=== PATIENT | female | born 1935 | race Caucasian/White ===

== ENCOUNTER 2022-02-28 19:06 | Outpatient (CLI) | payer MEDICARE, MEDICAID, SELFPAY | END 2022-02-28 19:07 | disposition home or self-care (01) | LOC: AMB 03-07 11:06 | PROVIDERS: PCP Family Medicine; Visit Provider Emergency Medicine Emergency Medical Services | DX: S01.112A Laceration without foreign body of left eyelid and periocular area, initial encounter (principal); W01.0XXA Fall on same level from slipping, tripping and stumbling without subsequent striking against object, initial encounter; Y92.009 Unspecified place in unspecified non-institutional (private) residence as the place of occurrence of the external cause | CPT/HCPCS: A0425; A0427 ==

== ENCOUNTER 2022-02-28 19:37 | Emergency (ER) | payer MEDICARE, MEDICAID, SELFPAY ==
[2022-02-28] VITALS (8 sets, daily range): BP systolic 135–143; BP diastolic 52–67; PULSE 58–87; RESP 16; TEMP 37.3; O2SAT 92–94; BMI 23.5
--- NOTE | 2022-02-28 19:40 | ED_ITS ---
HPI - General Adult General Chief complaint: Head Injury/Pain Stated complaint: Fall on Thinners Time Seen by Provider: 02/28/22 19:39 History of Present Illness HPI narrative: This 87-year-old female comes in by ambulance because of a fall that occurred just prior to arrival. She tripped over her walker at home and hit the left side of her head. She did not have loss of consciousness. She does not have any neurologic deficit. She does not report a headache but has some tenderness on the left side of her forehead above the left eyebrow where there is a laceration.. She is on anticoagulants. She did not have any other injury. She does report some chronic neck and back pain but states that there was no injury to her neck and there are no worsening symptoms involving her spine. Related Data Home Medications Medication Instructions Recorded Confirmed albuterol sulfate continuous nebulization PRN 02/28/22 albuterol sulfate 90 mcg/actuation inhalation 02/28/22 aerosol inhaler duloxetine 20 mg capsule,delayed mg PO 02/28/22 release furosemide 40 mg tablet mg 02/28/22 lovastatin 20 mg tablet mg 02/28/22 mometasone 220 mcg/actuation(60 inhalation 02/28/22 doses) breath activated powder inhaler (Asmanex Twisthaler) nitroglycerin sublingual PRN 02/28/22 nystatin 100,000 unit/gram topical topical 02/28/22 powder (Nyamyc) potassium chloride 20 mEq meq PO 02/28/22 tablet,extended release(part/cryst) (Klor-Con M) pramipexole 0.25 mg tablet 0.5 mg PO QHS 02/28/22 02/28/22 (Mirapex) tizanidine 2 mg tablet mg 02/28/22 tramadol 50 mg tablet mg 02/28/22 warfarin 1 mg tablet mg 02/28/22 Allergies Allergy/AdvReac Type Severity Reaction Status Date / Time morphine Allergy nausea and Verified 02/28/22 20:02 vomiting naproxen [From Naprosyn] Allergy itching, Verified 02/28/22 20:02 edema Sulfa (Sulfonamide Allergy unknown Verified 02/28/22 20:02 Antibiotics) aspirin AdvReac stomach Verified 02/28/22 20:02 upset codeine AdvReac gi upset Verified 02/28/22 20:02 hydromorphone [From Dilaudid] AdvReac Vomiting Verified 02/28/22 20:02 iv contrast dye Allergy anaphylaxis Uncoded 02/28/22 20:02 cortisone AdvReac weight gain Uncoded 02/28/22 20:02 percocet AdvReac Nausea Uncoded 02/28/22 20:02 Review of Systems Status of ROS: Reports: 10 or more systems reviewed and unremarkable except as noted in History and below Narrative: Constitutional: No fevers, no weight gain or loss. Eyes: No discharge. No vision changes. HENT: No congestion, no sore throat, no ear pain. Cardiovascular: No chest pain, no palpitations. Respiratory: No shortness of breath, no wheezes, no cough. Gastrointestinal: No abdominal pain, no vomiting, no diarrhea. Genitourinary: No dysuria, no hematuria. Musculoskeletal: Chronic degenerative disease. Skin: No rashes, no pruritis. Neurological: No dizziness, weakness, sensory change, speech change. Endo/Heme/Allergies: No bruising or bleeding. No polydipsia. Pysch: no suicidality, no anxiety, no insomnia. All other systems reviewed and are negative. Exam Narrative: Exam Narrative: Constitutional: Well-developed, well-nourished, no acute distress. HEENT: Bruising around her left eye. 2 cm linear laceration in the forehead just above the left eyebrow. Neck: Normal range of motion. Nontender. Supple. Heart: Regular. No murmurs. Normal rate. Intact distal pulses. Lungs: Clear to auscultation. No chest discomfort. No wheezes, rhonchi, or rales. Abdomen: Normal bowel sounds. Nontender. No rebound tenderness. Genitalia: Deferred. Back: No midline tenderness. Normal range of motion. Extremities: Normal range of motion. No injury. Skin: Intact. No rash. Warm. No erythema or pallor. Neurologic: No altered sensation. No weakness. Alert and oriented. Psychiatric: No suicidality. No anxiety or depression. No insomnia. Nursing notes and vitals signs are reviewed. Const: Vital Signs, click to edit/add: Vital Signs - 24 hr 02/28/22 19:48 Temperature 99.1 F Pulse Rate [Right Pulse Oximeter] 79 Respiratory Rate 16 Blood Pressure [Le ft Upper Arm] 143/67 H Pulse Oximetry 92 Oxygen Delivery Me thod Room Air Course Vital Signs Vital signs: Initial Vital Signs Temperature 99.1 F 02/28/22 19:48 Temperature Source Temporal Artery Scan 02/28/22 19:48 Pulse Rate 79 02/28/22 19:48 Respiratory Rate 16 02/28/22 19:48 Blood Pressure 143/67 H 02/28/22 19:48 Blood Pressure Mean 92 02/28/22 19:48 Blood Pressure Position Supine 02/28/22 19:48 Pulse Oximetry 92 02/28/22 19:48 Oxygen Delivery Method 02/28/22 19:48 Vital Signs Temperature 99.1 F 02/28/22 19:48 Pulse Rate 79 02/28/22 19:48 Respiratory Rate 16 02/28/22 19:48 Blood Pressure 143/67 H 02/28/22 19:48 Pulse Oximetry 92 02/28/22 19:48 Oxygen Delivery Method 02/28/22 19:48 Temperature 99.1 F 02/28/22 19:48 Pulse Rate 79 02/28/22 19:48 Respiratory Rate 16 02/28/22 19:48 Blood Pressure 143/67 H 02/28/22 19:48 Pulse Oximetry 92 02/28/22 19:48 Oxygen Delivery Method 02/28/22 19:48 Medical Decision Making MDM Narrative Medical decision making narrative: This patient comes in for evaluation of an injury that occurred just prior to arrival. She fell at home and hit her head. She has a 2 cm laceration on her left forehead. The patient is on blood thinners. She does not report any headache or neurologic deficits. She did go to CT scan immediately upon arrival and CT results by my review show no sign of intracranial findings. Radiology report is pending. The patient has a laceration on the forehead that was cleansed with normal saline. Anesthesia was acquired using 1% lidocaine with epinephrine. Total of 5 sutures were placed in interrupted fashion using 5.0 Ethilon suture. Instructions were given regarding wound care and the need to return for suture removal in 5-[address] scan - head: My impression: No acute intracranial abnormalities. No sign of fracture or hemorrhage. Discharge Plan Discharge Clinical Impression: Forehead laceration Patient Disposition: Home, Self-Care Condition: Improved Additional Instructions: Keep wound clean and dry. Follow up with clinic or urgent care in 5-7 days for suture removal. Return if worsening. Follow Up/Referrals: Shirley Cunningham DO [Primary Care Provider] - Stand Alone Forms: [employer] Info Instructions
--- NOTE | 2022-02-28 19:40 | CRLHL7_ITS ---
For Patients: As a result of the Century Cures Act, medical imaging exams and procedure reports are released immediately into your electronic medical record. You may view this report before your referring provider. If you have questions, please contact your health care provider. INDICATION: Fall. On anticoagulants. TECHNIQUE: CT of the head without contrast. Coronal and sagittal reformats are included. COMPARISON: Head CT from 04/05/2017. FINDINGS: No acute intracranial hemorrhage. No mass effect or midline shift. No hydrocephalus or extra-axial collections. Patchy white matter hypoattenuation, typical for chronic microvascular ischemic change. No acute osseous abnormalities. Mastoid air cells and paranasal sinuses are clear. Normal soft tissues. IMPRESSION: IMPRESSION: 1. No acute intracranial abnormalities. Please note that all CT scans at this facility use dose modulation, iterative reconstruction, and/or weight-based dosing when appropriate to reduce radiation dose to as low as reasonably achievable. Dictated by Cristian Pérez MD @ 02/28/2022 8:11:31 PM (Electronically Signed)
--- NOTE | 2022-02-28 20:13 | ED.NURSE ---
Pt's daughter Harmony called. Provided update to Harmony with pt permission.
== END 2022-02-28 20:58 | disposition home or self-care (01) ==
PROVIDERS: Emergency Provider Emergency Medicine Emergency Medical Services; PCP Family Medicine
DX: S01.112A Laceration without foreign body of left eyelid and periocular area, initial encounter (principal); W01.0XXA Fall on same level from slipping, tripping and stumbling without subsequent striking against object, initial encounter
CPT/HCPCS: 12011; 70450; 99283; 99284

== ENCOUNTER 2022-07-08 14:17 | Outpatient (REF) | payer MEDICARE, MEDICAID, SELFPAY ==
[2022-07-08 16:09] LABS: INR 3.53 (0.91-1.10)
== END 2022-07-08 14:18 | disposition home or self-care (01) ==
LOC: NPINS 14:17
PROVIDERS: PCP Family Medicine; Visit Provider Family Medicine
DX: I48.91 Unspecified atrial fibrillation (principal)
CPT/HCPCS: 85610

== ENCOUNTER 2022-09-28 14:25 | Outpatient (CLI) | payer MEDICARE, MEDICAID, SELFPAY | END 2022-09-28 14:26 | disposition home or self-care (01) | LOC: AMB 10-02 10:27 | PROVIDERS: PCP Family Medicine; Visit Provider Family Medicine | DX: R41.82 Altered mental status, unspecified (principal) | CPT/HCPCS: A0425; A0428; A0429 ==

== ENCOUNTER 2022-09-28 14:54 | Emergency (ER) | payer MEDICARE, MEDICAID, SELFPAY ==
[2022-09-28] VITALS (16 sets, daily range): BP systolic 110–169; BP diastolic 65–77; PULSE 61–79; RESP 18; TEMP 36.9; O2SAT 64–100
--- NOTE | 2022-09-28 15:12 | CRLHL7_ITS ---
For Patients: As a result of the Century Cures Act, medical imaging exams and procedure reports are released immediately into your electronic medical record. You may view this report before your referring provider. If you have questions, please contact your health care provider. Indication: Possible stroke Technique: Volumetric multidetector CT images of the head were obtained without the administration of low osmolar intravenous contrast. Comparison: CT head February 28, 2022 Findings: There is no intra-axial or extra-axial fluid collection. There is no mass effect or midline shift. There is age-related cortical atrophy with mild sulcal widening and ex vacuo dilatation of the lateral ventricles. There is encephalomalacia of the right frontal lobe similar to previous exam. There are moderate confluent chronic small vessel disease changes in the subcortical and periventricular white matter without lost mark-white differentiation. The orbits and their contents are grossly within normal limits. The bony calvarium is grossly intact. The paranasal sinuses are clear. The mastoid air cells are well aerated. Impression: Stable age related and remote ischemic changes of the brain from comparison without acute intracranial abnormality. A report was sent to Dr. Thomas at 3:43 p.m. September 28, 2022 Please note that all CT scans at this facility use dose modulation, iterative reconstruction, and/or weight-based dosing when appropriate to reduce radiation dose to as low as reasonably achievable. Dictated by Shahid Barr MD @ 09/28/2022 3:44:08 PM (Electronically Signed)
--- NOTE | 2022-09-28 15:13 | CRLHL7_ITS ---
For Patients: As a result of the Cures Act, medical imaging exams and procedure reports are released immediately into your electronic medical record. You may view this report before your referring provider. If you have questions, please contact your health care provider. Indication: Neck pain, unknown fall Technique: Volumetric multidetector CT images of the cervical spine were obtained without the administration of IV contrast. Comparison: None available. Findings: The cervical vertebral body heights are maintained with minimal endplate subchondral cystic changes. There is straightening of the normal cervical lordosis with anterolisthesis of C4 on C5 and C5 on C6. There is no displaced fracture or dislocation. There is moderate to severe degenerative disc disease with disc height loss and marginal osteophyte formation. There is moderate to severe facet arthrosis. There is mild to moderate pleural thickening of the right lung apex with interstitial prominence. Impression: Moderate to severe degenerative changes of the cervical spine without evidence of displaced fracture. Please note that all CT scans at this facility use dose modulation, iterative reconstruction, and/or weight-based dosing when appropriate to reduce radiation dose to as low as reasonably achievable. Dictated by Shahid Barr MD @ 09/28/2022 4:07:18 PM (Electronically Signed)
--- NOTE | 2022-09-28 15:23 | ED_ITS ---
HPI - General Adult General Chief complaint: Altered Mental Status Stated complaint: Possible stroke Time Seen by Provider: 09/28/22 15:07 History of Present Illness HPI narrative: Patient arrived 1455 and went directly for CT scan. Dr. Thomas met patient in hallway. Patient was on the phone with a friend at 1410 and friend noticed slurred speech and not making sense so called 911. Patient lives alone, unknown last known well. Fire responded, noticed left?sided deficit. EMS found coumadin, potassium med bottles at patient's home. EMS glucose 106. Patient has skin tear to left forearm 87-year-old woman presenting to the emergency department via EMS red stroke code. I meet them in the back coto and attend to CT imaging. Piecing together later in trying to verify last known well, spoke to friend Ketty who notes that Karin called her at 2:10 p.m.. She was however slurring her words such that Ketty could understand. Karin is mostly edentulous at and arrives here without her dentures. Family and friends say that she is very hard to understand without them but Ketty says this was worse. EMS has arrived frequently to Karin's home to assist her up from the floor/falls. She is anticoagulated with Coumadin with a history of atrial fibrillation and pacemaker implantation. Initially she seems to think that she is in her own home but over time it appears that she is relatively cognitively clear. She when asked says she hurts everywhere. Does struggle with chronic pain from osteoarthritis. She denies recent fall. EMS reports that was found sitting in her recliner with her albuterol inhaler in hand. Karin seems to be denying shortness of breath or chest pain or head pain. She has unable to cooperate with some requests as delineated exam below. I clarify with Karin later that she had placed a roast in the oven around or 04 24. Subsequently made a strawberry pie then was doing dishes. I am not sure what happened after that. Estimate then is what she reports as a last known well of around 1230 or 1:00 p.m. Related Data Home Medications Medication Instructions Recorded Confirmed albuterol sulfate continuous nebulization PRN 02/28/22 albuterol sulfate 90 mcg/actuation inhalation 02/28/22 aerosol inhaler duloxetine 20 mg capsule,delayed mg PO 02/28/22 release furosemide 40 mg tablet mg 02/28/22 lovastatin 20 mg tablet mg 02/28/22 mometasone 220 mcg/actuation(60 inhalation 02/28/22 doses) breath activated powder inhaler (Asmanex Twisthaler) nitroglycerin sublingual PRN 02/28/22 nystatin 100,000 unit/gram topical topical 02/28/22 powder (Nyamyc) potassium chloride 20 mEq meq PO 02/28/22 tablet,extended release(part/cryst) (Klor-Con M) pramipexole 0.25 mg tablet 0.5 mg PO QHS 02/28/22 02/28/22 (Mirapex) tizanidine 2 mg tablet mg 02/28/22 tramadol 50 mg tablet mg 02/28/22 warfarin 1 mg tablet mg 02/28/22 Allergies Allergy/AdvReac Type Severity Reaction Status Date / Time morphine Allergy nausea and Verified 02/28/22 20:02 vomiting naproxen [From Naprosyn] Allergy itching, Verified 02/28/22 20:02 edema Sulfa (Sulfonamide Allergy unknown Verified 02/28/22 20:02 Antibiotics) aspirin AdvReac stomach Verified 02/28/22 20:02 upset codeine AdvReac gi upset Verified 02/28/22 20:02 hydromorphone [From Dilaudid] AdvReac Vomiting Verified 02/28/22 20:02 iv contrast dye Allergy anaphylaxis Uncoded 02/28/22 20:02 cortisone AdvReac weight gain Uncoded 02/28/22 20:02 percocet AdvReac Nausea Uncoded 02/28/22 20:02 Review of Systems Status of ROS: Reports: unobtainable due to mental status (Difficult to accomplish being hard of hearing and edentulous) PFSH PFS Social History Smoking Status: Unknown if ever smoked Do you use any of these nicotine containing products: None Second hand tobacco smoke exposure: No How often do you have a drink containing alcohol: never How often do you have six or more drinks on one occasion: Never AUDIT-C Alcohol total score: 0 Non-prescribed substance use: denies use Exam Narrative: Exam Narrative: On arrival she is alert. Generally little hard of hearing. Slurring words though not inconsistent with edentulous state. Oropharynx is dry. Prefers right eye deviation. Pupils appeared to show evidence of lens reimplantation. They are 3 mm and briskly reactive. Head is turned preferentially to the right. She is breathing easily supporting her own airway. Lungs appear to be clear. There is a loud holosystolic murmur with accentuated S2 across the precordium. Abdomen is soft and nontender. Lower extremities with 1.5+ pitting edema below the knees. On the evidence of trauma appears to be a recent abrasion and very small skin tear at the left mid forearm. Repeatedly has no movement of left arm and left leg. She does indicate that she can feel touch there. Somewhat weak grasp in the right hand but I think at baseline. Good strength in the right lower extremity as well. Const: Vital Signs, click to edit/add: Vital Signs - 24 hr 09/28/22 15:08 09/28/22 15:44 09/28/22 15:45 Temperature 98.4 F Pulse Rate 65 71 Pulse Rate [Pulse Oximeter] 79 Respiratory Rate 18 Blood Pressure Pulse Oximetry 91 83 L 09/28/22 15:47 09/28/22 15:53 09/28/22 16:00 Temperature Pulse Rate 65 Pulse Rate [Pulse Oximeter] Respiratory Rate Blood Pressure 164/67 H 158/76 H Pulse Oximetry 100 09/28/22 16:02 09/28/22 16:15 09/28/22 16:30 Temperature Pulse Rate 62 65 64 Pulse Rate [Pulse Oximeter] Respiratory Rate Blood Pressure 120/72 Pulse Oximetry 97 96 100 09/28/22 16:33 09/28/22 16:45 09/28/22 17:00 Temperature Pulse Rate 72 63 61 Pulse Rate [Pulse Oximeter] Respiratory Rate Blood Pressure 156/75 H Pulse Oximetry 100 98 100 Course Vital Signs Vital signs: Initial Vital Signs Temperature 98.4 F 09/28/22 15:08 Temperature Source Temporal Artery Scan 09/28/22 15:08 Pulse Rate 79 09/28/22 15:08 Respiratory Rate 18 09/28/22 15:08 Vital Signs Temperature 98.4 F 09/28/22 15:08 Pulse Rate 79 05/06/23 15:08 Respiratory Rate 18 09/28/22 15:08 Temperature 98.4 F 09/28/22 15:08 Pulse Rate 61 09/28/22 17:00 Respiratory Rate 18 09/28/22 15:08 Blood Pressure 156/75 H 09/28/22 16:33 Pulse Oximetry 100 09/28/22 17:00 Medical Decision Making MDM Narrative Medical decision making narrative: Initially little unclear whether not has fallen. I think scanning neck/C-spine is important. Will also look for potential head bleed I can not find evidence of trauma here. I would suspect ischemic stroke maybe MCA right side. Reviewing records does show DNR DNI status. Initially operating with unclear last known well time. Scanned head and C-spine. Numerous attempts at IV where they kept blowing and subsequently realized a reported anaphylaxis reaction to IV contrast dye. Anticipating placement yet of IV will be pretreating when available with Solu-Medrol and diphenhydramine. Given density of symptoms would consider thrombolytics regardless if can verify last known well and family preference for cares. I reviewed CT head noting no acute bleed. Radiology over-read confirms as well as no cervical fracture apparent. Extensive degenerative changes. With over-read confirmed a call to Stroke Neuro speak with Dr. Zabala. Still attempting to obtain line and verify family preference for cares. Karin is fiercely independent and would want any possibility of improvement according to my conversation with family. We discussed potential risk of lytics in this case. Pending improvement may yet do IV contrasted scan at [place]. Initiating pre treatment for IV contrast media. Finally get hemoglobin and INR back. She is within goal. Confirmed with Dr. Zabala given suspected last known well is still within window for lytics. Anesthesia has arrived and are thankfully able to place 2 lines. Lytics are initiated and transport anticipated direct to ED. This was challenging to verify last known well, confirm family wishes, line placement. Lab Data Lab results reviewed: Yes I reviewed the patient's lab results Labs: Lab Results 09/28/22 09/28/22 09/28/22 Range/Units 15:40 16:09 16:21 WBC 6.27 (4.50-11.00) K/uL RBC 3.82 L (4.00-5.20) m/uL Hgb 10.8 L (12.0-16.0) gm/dL Hct 35.8 (33.0-51.0) % MCV 94 (80-100) fL MCH 28 (26-34) pg MCHC 30 L (32-36) gm/dL RDW Coeff of Carli 15.1 (11.5-15.5) % Plt Count 230 (140-440) K/uL Neut % (Auto) 72.6 H (42.0-72.0) % Lymph % (Auto) 13.2 L (20-44) % [place] % (Auto) 11.2 H (0.0-11.0) % Eos % (Auto) 1.6 (0.0-7.0) % Baso % (Auto) 0.3 (0.0-3.0) % Neut # (Auto) 4.60 (1.7-7.0) K/uL Lymph # (Auto) 0.80 L (0.90-2.90) K/uL [place] # (Auto) 0.70 (0.00-0.90) K/UL Eos # (Auto) 0.10 (0.00-0.50) K/uL Baso # (Auto) 0.02 (0.00-0.30) K/uL INR 1.52 H (0.91-1.10) APTT 35 H (23-33) Seconds D-Dimer Quant (PE/DVT) Cancelled Sodium 138 (135-149) mmol/L Potassium 3.1 L (3.6-5.1) mmol/L Chloride 104 (96-114) mmol/L Carbon Dioxide 28 (20-32) mmol/L BUN 14 (7-30) mg/dL Creatinine 1.0 (0.5-1.5) mg/dL Estimated Creat Clear Estimated GFR 55 ml/min Glucose 88 (60-115) mg/dL Calcium 8.9 (8.4-10.6) mg/dL Magnesium 2.0 (1.5-2.6) mg/dL Total Bilirubin 0.6 (0.1-1.5) mg/dL Direct Bilirubin 0.4 (0.0-0.5) mg/dL AST 26 (12-35) U/L ALT 16 (4-35) U/L Alkaline Phosphatase 86 (40-150) U/L Troponin I 0.05 H (0.01-0.04) ng/mL C-Reactive Protein 2.0 H (0.5-1.0) mg/dL NT-Pro-B Natriuret Pep 6600 pg/mL Total Protein 6.6 (6.0-8.3) g/dL Albumin 3.5 (3.3-5.0) g/dL SARS-CoV-2 (PCR) Negative SARS-CoV-2 (Negative) POC Troponin I (0.01-0.04) ng/ml 09/28/22 Range/Units 16:21 WBC (4.50-11.00) K/uL RBC (4.00-5.20) m/uL Hgb (12.0-16.0) gm/dL Hct (33.0-51.0) % MCV (80-100) fL MCH (26-34) pg MCHC (32-36) gm/dL RDW Coeff of Carli (11.5-15.5) % Plt Count (140-440) K/uL Neut % (Auto) (42.0-72.0) % Lymph % (Auto) (20-44) % [place] % (Auto) (0.0-11.0) % Eos % (Auto) (0.0-7.0) % Baso % (Auto) (0.0-3.0) % Neut # (Auto) (1.7-7.0) K/uL Lymph # (Auto) (0.90-2.90) K/uL [place] # (Auto) (0.00-0.90) K/UL Eos # (Auto) (0.00-0.50) K/uL Baso # (Auto) (0.00-0.30) K/uL INR (0.91-1.10) APTT (23-33) Seconds D-Dimer Quant (PE/DVT) 3.54 H Sodium Cancelled (135-149) mmol/L Potassium Cancelled (3.6-5.1) mmol/L Chloride Cancelled (96-114) mmol/L Carbon Dioxide Cancelled (20-32) mmol/L BUN Cancelled (7-30) mg/dL Creatinine Cancelled (0.5-1.5) mg/dL Estimated Creat Clear Cancelled Estimated GFR Cancelled ml/min Glucose Cancelled (60-115) mg/dL Calcium Cancelled (8.4-10.6) mg/dL Magnesium Cancelled (1.5-2.6) mg/dL Total Bilirubin Cancelled (0.1-1.5) mg/dL Direct Bilirubin Cancelled (0.0-0.5) mg/dL AST Cancelled (12-35) U/L ALT Cancelled (4-35) U/L Alkaline Phosphatase Cancelled (40-150) U/L Troponin I (0.01-0.04) ng/mL C-Reactive Protein Cancelled (0.5-1.0) mg/dL NT-Pro-B Natriuret Pep pg/mL Total Protein Cancelled (6.0-8.3) g/dL Albumin Cancelled (3.3-5.0) g/dL SARS-CoV-2 (PCR) (Negative) POC Troponin I 0.09 H (0.01-0.04) ng/ml Critical Care Time Critical Care Time Critical Care Time: Yes Attestation: The patient required my highest level preparedness to intervene emergently and I personally spent this critical care time directly and personally managing the patient. This critical care time included: Obtaining a history; Examining the patient; Pulse oximetry; Ordering and reviewing of studies; Arranging urgent treatment with development of a management plan; Evaluation of patients response to treatment; Frequent reassessment discussions with other providers. This critical care time was performed to assess and manage the high probability of imminent life-threatening deterioration that could result in multiorgan failure. It was exclusive of separate billable procedures and treating other patients and teaching time. Total Critical Care Time in Minutes: 90 Discharge Plan Discharge Clinical Impression: Ischemic cerebrovascular accident (CVA) Patient Disposition: [facility] Condition: Stable Prescriptions: No Action albuterol sulfate 90 mcg/actuation HFA aerosol inhaler INHALATION albuterol sulfate continuous nebulization PRN furosemide 40 mg tablet lovastatin 20 mg tablet duloxetine 20 mg capsule,delayed release(DR/EC) PO Asmanex Twisthaler 220 mcg/ actuation (60) aerosol powdr breath activated INHALATION nitroglycerin sublingual PRN potassium chloride [Klor-Con M20] 20 mEq tablet,ER particles/crystals PO nystatin [Nyamyc] 100,000 unit/gram powder TOPICAL pramipexole [Mirapex] 0.25 mg tablet 0.5 mg PO QHS tizanidine 2 mg tablet tramadol 50 mg tablet warfarin 1 mg tablet Rx Instructions: TAKE DIRECTED Follow Up/Referrals: Shirley Cunningham DO [Primary Care Provider] - Stand Alone Forms: [employer] Info Instructions
[2022-09-28 16:28] LABS: Basophils Absolute Auto 0.02 K/uL (0.00-0.30); Basophils Percent Auto 0.3 % (0.0-3.0); Eosinophils Percent Auto 1.6 % (0.0-7.0); Hematocrit 35.8 % (33.0-51.0); Hemoglobin* 10.8 gm/dL (12.0-16.0); Immature Granulocytes Abs Auto 0.07 K/uL (0.00-0.30); Immature Granulocytes Pct Auto 1.1 %; Lymphocytes Percent Auto 13.2 % (20-44); Mean Corpuscular HGB Conc 30 gm/dL (32-36); Mean Corpuscular Hemoglobin 28 pg (26-34); Mean Corpuscular Volume 94 fL (80-100); Monocytes Percent Auto 11.2 % (0.0-11.0); Neutrophils Percent Auto 72.6 % (42.0-72.0); Platelet Count* 230 K/uL (140-440); RDW Coefficient of Variation % 15.1 % (11.5-15.5); Red Blood Count 3.82 m/uL (4.00-5.20); Slide Review Reflex No; White Blood Count* 6.27 K/uL (4.50-11.00)
[2022-09-28 16:30] LABS: Troponin, Point-of-Care* 0.09 ng/ml (0.01-0.04)
[2022-09-28 16:31] LABS: SARS PCR* Negative SARS-CoV-2 (Negative)
[2022-09-28 16:42] LABS: Albumin* 3.5 g/dL (3.3-5.0); Chloride* 104 mmol/L (96-114); Sodium* 138 mmol/L (135-149)
[2022-09-28 16:43] LABS: Potassium* 3.1 mmol/L (3.6-5.1)
[2022-09-28 16:45] LABS: Estimated Glomerular Filt Rate 55 ml/min
[2022-09-28 16:46] LABS: INR 1.52 (0.91-1.10); Prothrombin Time 19.2 Seconds
[2022-09-28 16:46] LABS: Alanine Aminotransferase* 16 U/L (4-35); Alkaline Phosphatase* 86 U/L (40-150); Aspartate Amino Transferase* 26 U/L (12-35); Bilirubin Direct* 0.4 mg/dL (0.0-0.5); Bilirubin Total* 0.6 mg/dL (0.1-1.5); Blood Urea Nitrogen* 14 mg/dL (7-30); Calcium* 8.9 mg/dL (8.4-10.6); Carbon Dioxide* 28 mmol/L (20-32); Glucose* 88 mg/dL (60-115); Total Protein* 6.6 g/dL (6.0-8.3)
[2022-09-28 16:47] LABS: Partial Thromboplastin Time* 35 Seconds (23-33)
[2022-09-28 16:49] LABS: D Dimer Quantitative* 3.54 ug/ml (0.00-0.50)
[2022-09-28 16:58] LABS: NT Pro B Type NatriureticPept* 6600 pg/mL; Troponin I* 0.05 ng/mL (0.01-0.04)
[2022-09-28] MEDS: 0.9 % SODIUM CHLORIDE 500 ML 500 ML IV (17:09)
[2022-09-28] MEDS: diphenhydrAMINE 50 MG/ML inj IVP (17:12)
[2022-09-28] MEDS: TENECTEPLASE 5 MG/ML inj 14 MG IVP (17:29)
== END 2022-09-28 18:02 ==
PROVIDERS: Emergency Provider Family Medicine; PCP Family Medicine
DX: I63.9 Cerebral infarction, unspecified (principal)
CPT/HCPCS: 36415; 70450; 72125; 80048; 80076; 83735; 83880; 84484; 85025; 85379; 85610; 85730; 86140; 87635; 94761; 96374; 96375; 99284; 99291; 99292; J1200; J1720; J3101; J7050; J7120

== ENCOUNTER 2022-09-28 17:57 | Outpatient (CLI) | payer MEDICARE, MEDICAID, SELFPAY | END 2022-09-28 17:58 | disposition home or self-care (01) | PROVIDERS: PCP Family Medicine; Visit Provider Emergency Medicine Emergency Medical Services | DX: I63.9 Cerebral infarction, unspecified (principal) | CPT/HCPCS: A0425; A0428 ==

== ENCOUNTER 2022-12-30 11:07 | Outpatient (REF) | payer MEDICARE, MEDICAID, SELFPAY ==
[2022-12-30 13:09] LABS: INR 1.13 (0.91-1.10); Prothrombin Time 15.2 Seconds
== END 2022-12-30 11:08 | disposition home or self-care (01) ==
LOC: NFLDLAB 11:07
PROVIDERS: PCP Family Medicine; Visit Provider Nurse Practitioner Adult Health
DX: I48.0 Paroxysmal atrial fibrillation (principal)
CPT/HCPCS: 36415; 85610